=== PATIENT | female | born 1960 | race American Indian/Alaskan Native ===

== ENCOUNTER 2019-02-14 14:15 | Observation (INO) | payer BC, MEDICAID, MEDICARE, OTHER ==
[2019-02-14 14:16] VITALS: BMI 26.5
[2019-02-14] MEDS ORDERED: Ciprofloxacin 400mg/200ml D5W 400 MG/200 ML BAG IVPB STA (14:44)
[2019-02-14] MEDS ORDERED: Ciprofloxacin 400mg/200ml D5W 400 MG/200 ML BAG IVPB ONE (14:59)
[2019-02-14 15:20] LABS: SQUAMOUS EPITHIAL 2 /hpf (0-5); URINE BACTERIA RARE (<OCC); URINE BILIRUBIN NEGATIVE (NEGATIVE); URINE BLOOD SMALL (NEGATIVE); URINE CLARITY CLEAR (Clear); URINE COLOR STRAW (YELLOW); URINE GLUCOSE (UA) NEG (NEGATIVE); URINE LEUKOCYTE ESTERASE NEG Leu/uL (Negative); URINE PROTEIN 100 mg/dL (NEGATIVE); URINE UROBILINOGEN 0.2-1.0 mg/dL (0.2-1.0)
[2019-02-14 15:31] LABS: BASO % 0.5 % (0.0-2.0); EOS % 0.2 % (0.0-4.0); HEMOGLOBIN 13.9 g/dL (12.0-16.0); LYMPH # 0.8 K/uL (1.0-4.3); LYMPH % 19.5 % (20.0-40.0); MEAN CORPUSCULAR HEMOGLOBIN 30.1 pg (27.0-31.0); MEAN CORPUSCULAR HGB CONC 32.4 g/dL (33.0-37.0); MEAN PLATELET VOLUME 9.2 fl (7.2-11.7); MONO # 0.3 K/uL (0.0-0.8); MONO % 5.8 % (0.0-10.0); NEUT # 3.2 K/uL (1.8-7.0); NRBC % 0.2 % (0.0-0.0); RBC 4.62 Mil/uL (3.80-5.20); RED CELL DISTRIBUTION WIDTH 16.1 % (11.5-14.5); WHITE BLOOD COUNT 4.3 K/uL (4.8-10.8)
[2019-02-14 15:42] LABS: MEAN CELL VOLUME 92.7 fl (81.0-99.0)
--- NOTE | 2019-02-14 15:43 | ED PDOC ---
HPI: Abdomen Time Seen by Provider: 02/14/19 14:29 Chief Complaint (Nursing): GI Problem Chief Complaint (Provider): GI Problem History Per: Patient History/Exam Limitations: no limitations Onset/Duration Of Symptoms: Days Current Symptoms Are (Timing): Still Present Additional Complaint(s): 58 y/o female with a PMHx of HIV, Hepatitis C with liver cirrhosis and esophag eal varices presents to the ED for evaluation of hematemesis associated with worsening abdominal pain since last night. Patient denies any changes in medication. Viral load is undetectable. CD4 count is 179 as per most recent paperwork. PMD: Nii Ta Past Medical History Reviewed: Historical Data, Nursing Documentation, Vital Signs Vital Signs: Last Vital Signs Temp 98.1 F 02/14/19 14:23 Pulse 61 02/14/19 14:23 Resp 17 02/14/19 14:23 BP 146/96 H 02/14/19 14:23 Pulse Ox 100 02/14/19 14:23 Primary Care Provider: Nii Ta - Medical History PMH: Anemia (blood transfusion), Arthritis (lower back), Hepatitis (C), HIV, HTN Denies: Diabetes, Deep Vein Thrombosis, Chronic Kidney Disease - Surgical History Surgical History: Denies: Pacemaker - Family History Family History: States: Unknown Family Hx - Immunization History Hx Tetanus Toxoid Vaccination: No Hx Influenza Vaccination: No Hx Pneumococcal Vaccination: No - Home Medications Home Medications: Ambulatory Orders Medication Instructions Recorded Abacavir Sulfate/Lamivudine 1 each PO DAILY 05/04/17 [Abacavir-Lamivudine 600-300 mg] Gabapentin [Neurontin] 300 mg PO TID 05/04/17 Ledipasvir/Sofosbuvir [Harvoni 1 tab PO DAILY 05/04/17 90-400 mg Tablet] Omeprazole 40 mg PO DAILY 05/04/17 Ondansetron ODT [Zofran ODT] 4 mg PO Q8H PRN 05/04/17 Pentoxifylline [Pentoxil] 400 mg PO TID 05/04/17 Raltegravir Potassium [Isentress] 400 mg PO BID 05/04/17 Atovaquone 750 mg PO DAILY 02/14/19 Nadolol [Corgard] 1 tab PO DAILY 02/14/19 oxyCODONE [oxyCODONE Immediate 15 mg PO DAILY 02/14/19 Release Tab] - Allergies Allergies/Adverse Reactions: Allergies Allergy/AdvReac Type Severity Reaction Status Date / Time doxycycline Allergy RASH Verified 02/14/19 14:21 sulfamethoxazole Allergy RASH Verified 02/14/19 14:21 [From Bactrim] tramadol HCl [From Ultram] Allergy RASH Verified 02/14/19 14:21 trimethoprim [From Bactrim] Allergy RASH Verified 02/14/19 14:21 Review of Systems ROS Statement: Except As Marked, All Systems Reviewed And Found Negative Gastrointestinal: Positive for: Abdominal Pain, Hematemesis Physical Exam - Reviewed Nursing Documentation Reviewed: Yes Vital Signs Reviewed: Yes - Physical Exam Appears: Positive for: Uncomfortable (Patient moaning in pain, vital signs stable on monitor) Head Exam: Positive for: ATRAUMATIC Skin: Positive for: Normal Color, Warm, Dry Eye Exam: Positive for: Other (conjunctivae is pink) ENT: Positive for: Other (moist mucous membranes) Neck: Positive for: Normal Cardiovascular/Chest: Positive for: Regular Rate, Rhythm. Negative for: Murmur Respiratory: Positive for: Normal Breath Sounds. Negative for: Respiratory Distress Gastrointestinal/Abdominal: Positive for: Tenderness (diffuse abdominal tenderness but worse in the epigastric region) Extremity: Positive for: Normal ROM. Negative for: Deformity Neurological/Psych: Positive for: Awake, Oriented (x3). Negative for: Motor/Sensory Deficits - Laboratory Results Result Diagrams: 02/14/19 15:10 02/14/19 15:50 Lab Results: Urine Color Straw (YELLOW) 02/14/19 15:10 Urine Clarity Clear (Clear) 02/14/19 15:10 Urine pH 8.0 (5.0-8.0) 02/14/19 15:10 Ur Specific [place] 1.005 (1.003-1.030) 02/14/19 15:10 Urine Protein 100 mg/dL (NEGATIVE) 02/14/19 15:10 Urine Glucose (UA) Neg mg/dL (NEGATIVE) 02/14/19 15:10 Urine Ketones Trace mg/dL (NEGATIVE) 02/14/19 15:10 Urine Blood Small (NEGATIVE) 02/14/19 15:10 Urine Nitrate Negative (NEGATIVE) 02/14/19 15:10 Urine Bilirubin Negative (NEGATIVE) 02/14/19 15:10 Urine Urobilinogen 0.2-1.0 mg/dL (0.2-1.0) 02/14/19 15:10 Ur Leukocyte Esterase Neg Yeison/uL (Negative) 02/14/19 15:10 Urine RBC (Auto) 4 /hpf (0-3) H 02/14/19 15:10 Urine Microscopic WBC 1 /hpf (0-5) 02/14/19 15:10 Ur Squamous Epith Cells 2 /hpf (0-5) 02/14/19 15:10 Urine Bacteria Rare (<OCC) 02/14/19 15:10 - ECG O2 Sat by Pulse Oximetry: 100 (RA) Pulse Ox Interpretation: Normal Medical Decision Making Medical Decision Making: Time: 1439 A/P: Workup for Upper GI bleed and vomiting -- Labs -- Reglan, Zofran, Cipro, Octreotide ordered -- GI cocktail when labs are back -- Reassess patient -- Type and Screen -- EKG -- CMP -- Lact Acid, Plasma -- Lipase -- CBC with Differentials -- PTT -- Prothrombin Time -- CXR Portable -- Cipro 400 mg in 200 ml IVPB -- Morphine 2 mg IVP -- Protonix Inj 8-0 mg IVP -- Reglan 10 mg IVP -- SandoSTATIN 50 mcg IV -- Zofran Inj 4 mg IVP -- Urinalysis 1620 Pt admitted to hospitalist. GI consult placed. Pain improved. Pt given IV fluids. Scribe Attestation: Documented by Dino Tompkins, acting as a scribe Heather Garza MD. Provider Scribe Attestation: All medical record entries made by the Scribe were at my direction and personally dictated by me. I have reviewed the chart and agree that the record accurately reflects my personal performance of the history, physical exam, medical decision making, and the department course for this patient. I have also personally directed, reviewed, and agree with the discharge instructions and disposition. Disposition - Clinical Impression Clinical Impression: Gastrointestinal hemorrhage, Hepatitis C, AIDS (acquired immunodeficiency syndrome), CD4 <=200 - Disposition Disposition Time: 16:20 Condition: GUARDED
[2019-02-14] MEDS ORDERED: Sterile Water 20 ML IV ONE (15:56)
[2019-02-14 16:09] LABS: INR 1.7; PROTHROMBIN TIME 19.3 Seconds (9.8-13.1)
[2019-02-14 16:11] LABS: ALB/GLOB RATIO 0.8 (1.0-2.1); ALBUMIN 4.5 g/dL (3.5-5.0); ALT/SGPT 23 U/L (9-52); AST/SGOT 47 U/L (14-36); BLOOD UREA NITROGEN 12 mg/dl (7-17); CALCIUM 10.5 mg/dL (8.4-10.2); GFR NON-AFRICAN AMERICAN > 60; LIPASE 92 U/L (23-300); PARTIAL THROMBOPLASTIN TIME 29.8 Seconds (25.6-37.1)
[2019-02-14] MEDS ORDERED: Potassium Chloride 20 mEq 100 ML IVPB ONE (16:40)
[2019-02-14] MEDS ORDERED: Potassium Ch 20mEq in D5-1/2NS 1,000 ML IV SCH (16:45)
--- NOTE | 2019-02-14 16:47 | CP.PCM.HP ---
<Ninfa Baker - Last Filed: 02/14/19 17:54> History of Present Illness - History of Present Illness History of Present Illness: 58-year-old female with PMH of HIV, Hep C (treated w/Annabel) and liver cirrhosis, bleeding varices and DVT presents to [facility] ED after 8 episodes of hematemesis and worsening epigastric pain. No vomiting episodes in [facility] ED. Epigastric pain is 8/10 in severity, sharp/stabbign in ature, radiates to the back, is associated with nausea with no relieving factors. She notes that this bleeding began 2.5 weeks ago (01/28/19) and she went to another hospital but signed out since Dr Ta did not have privileges- hematemesis self-resolved at that time. She admits to lightheadedness and nausea but denies syncope, change in vision, palpitations, SOB and fever. PMD: Dr Ta Surgical Hx: hip surgery (), DVT (), IVC filter (), multiple right breast surg - benign (), partial hysterectomy (), left ankle x 15 surgeries (Dr Tellez) Meds: pt not sure of HTN medication OBHx: partial hysterectomy 1996 Fam Hx: denies Allergy: doxy, sulfa, tramadol, trimethoprim Present on Admission - Present on Admission Any Indicators Present on Admission: Yes History of DVT/PE: Yes History of Uncontrolled Diabetes: No Review of Systems - Review of Systems Review of Systems: all other systems reviewed and negative unless noted in HPI Past Patient History - Infectious Disease Hx of Infectious Diseases: None - Past Medical History & Family History Past Medical History?: Yes - Past Social History Smoking Status: Former Smoker - CARDIAC Hx Hypertension: Yes Hx Pacemaker: No - PULMONARY Hx Respiratory Disorders: No - NEUROLOGICAL Hx Neurological Disorder: Yes Other/Comment: severe pain fromneuropathy ble - HEENT Hx HEENT Problems: Yes Hx Blind: No Other/Comment: Use eyeglasses for reading - RENAL Hx Chronic Kidney Disease: No - ENDOCRINE/METABOLIC Hx Endocrine Disorders: No - HEMATOLOGICAL/ONCOLOGICAL Hx Anemia: Yes (blood transfusion) Hx Human Immunodeficiency Virus (HIV): Yes - INTEGUMENTARY Hx Dermatological Problems: Yes (chronic ulcers) Other/Comment: left inner ankle sx scar, multiple ble skin discolorations, crooked left great toe, vanda scar from fall - MUSCULOSKELETAL/RHEUMATOLOGICAL Hx Arthritis: Yes (lower back) - GASTROINTESTINAL Hx Gastrointestinal Disorders: No Other/Comment: + c dif 05/07/17 - GENITOURINARY/GYNECOLOGICAL Hx Genitourinary Disorders: No - PSYCHIATRIC Hx Emotional Abuse: No Hx Physical Abuse: No Hx Substance Use: No - SURGICAL HISTORY Hx Mastectomy: No - ANESTHESIA Hx Anesthesia Reactions: No Hx Malignant Hyperthermia: No Meds Allergies/Adverse Reactions: Allergies Allergy/AdvReac Type Severity Reaction Status Date / Time doxycycline Allergy RASH Verified 02/14/19 14:21 sulfamethoxazole Allergy RASH Verified 02/14/19 14:21 [From Bactrim] tramadol HCl [From Ultram] Allergy RASH Verified 02/14/19 14:21 trimethoprim [From Bactrim] Allergy RASH Verified 02/14/19 14:21 Physical Exam - Constitutional Appears: Non-toxic, No Acute Distress - Head Exam Head Exam: NORMAL INSPECTION - Eye Exam Eye Exam: Normal appearance - ENT Exam ENT Exam: Mucous Membranes Dry - Neck Exam Neck exam: Positive for: Normal Inspection - Respiratory Exam Respiratory Exam: NORMAL BREATHING PATTERN. absent: Respiratory Distress - GI/Abdominal Exam GI & Abdominal Exam: Soft, Tenderness (epigastric tenderness to palpation) - Neurological Exam Neurological exam: Alert, Oriented x3 - Psychiatric Exam Psychiatric exam: Normal Affect, Normal Mood - Skin Skin Exam: Dry, Normal Color, Warm Results - Vital Signs Recent Vital Signs: Last Vital Signs Temp 98.1 F 02/14/19 14:23 Pulse 61 02/14/19 14:23 Resp 17 02/14/19 14:23 BP 146/96 H 02/14/19 14:23 Pulse Ox 100 02/14/19 15:49 - Labs Result Diagrams: 02/14/19 15:10 02/14/19 15:50 Labs: Laboratory Results - last 24 hr 02/14/19 02/14/19 02/14/19 15:10 15:10 15:50 WBC 4.3 L RBC 4.62 Hgb 13.9 Hct 42.9 MCV 92.7 D MCH 30.1 MCHC 32.4 L RDW 16.1 H Plt Count 74 L D MPV 9.2 Neut % (Auto) 74.0 Lymph % (Auto) 19.5 L [place] % (Auto) 5.8 Eos % (Auto) 0.2 Baso % (Auto) 0.5 Neut # (Auto) 3.2 Lymph # (Auto) 0.8 L [place] # (Auto) 0.3 Eos # (Auto) 0.0 Baso # (Auto) 0.0 PT INR APTT Sodium 135 Potassium 3.1 L Chloride 100 Carbon Dioxide 24 Anion Gap 14 BUN 12 Creatinine 0.7 Est GFR ( Amer) > 60 Est GFR (Non-Af Amer) > 60 Random Glucose 116 H Lactic Acid Calcium 10.5 H Total Bilirubin 2.3 H AST 47 H D ALT 23 Alkaline Phosphatase 81 Total Protein 10.2 H Albumin 4.5 Globulin 5.7 H Albumin/Globulin Ratio 0.8 L Lipase 92 Urine Color Straw Urine Clarity Clear Urine pH 8.0 Ur Specific [place] 1.005 Urine Protein 100 Urine Glucose (UA) Neg Urine Ketones Trace Urine Blood Small Urine Nitrate Negative Urine Bilirubin Negative Urine Urobilinogen 0.2-1.0 Ur Leukocyte Esterase Neg Urine RBC (Auto) 4 H Urine Microscopic WBC 1 Ur Squamous Epith Cells 2 Urine Bacteria Rare Blood Type Antibody Screen BBK History Checked 02/14/19 02/14/19 02/14/19 15:50 15:50 15:50 WBC RBC Hgb Hct MCV MCH MCHC RDW Plt Count MPV Neut % (Auto) Lymph % (Auto) [place] % (Auto) Eos % (Auto) Baso % (Auto) Neut # (Auto) Lymph # (Auto) [place] # (Auto) Eos # (Auto) Baso # (Auto) PT 19.3 H INR 1.7 APTT 29.8 Sodium Potassium Chloride Carbon Dioxide Anion Gap BUN Creatinine Est GFR ( Amer) Est GFR (Non-Af Amer) Random Glucose Lactic Acid 1.7 Calcium Total Bilirubin AST ALT Alkaline Phosphatase Total Protein Albumin Globulin Albumin/Globulin Ratio Lipase Urine Color Urine Clarity Urine pH Ur Specific [place] Urine Protein Urine Glucose (UA) Urine Ketones Urine Blood Urine Nitrate Urine Bilirubin Urine Urobilinogen Ur Leukocyte Esterase Urine RBC (Auto) Urine Microscopic WBC Ur Squamous Epith Cells Urine Bacteria Blood Type A POSITIVE Antibody Screen Negative BBK History Checked Patient has bt Assessment & Plan - Assessment and Plan (Free Text) Assessment: 58-year-old female with PMH of HIV, Hep C and cirrhosis, bleeding varices and DVT presents to [facility] ED after 8 episodes of hematemesis. CXR: mild diffuse bilateral interstitial infiltrates; rule out fluid overload however chronic interstitial fibrosis not excluded Plan: Upper GI bleed -likely secondary to bleeding varices -H/H stable, monitor -NPO -IVF: D5 0.5 NS + 40 mEq K @100 mls/hr -Protonix drip -Octreotide drip 1250mcg/200 NS @ 5cc/hr -Zofran 4mg PRN -Pain control; morphine 0.5 Q6 mg moderate, morphine 1mg Q6 severe -GI consulted, Dr Sims, input and recs appreciated Hypokalemia -K 3.1 -repleated -f/u labs in am HTN -unsure of HTN meds -monitor vitals HIV -Labs 01/28/19 CD4 179 -Viral load undetectable as per pt -ID consulted, Dr Ta, input and recs appreciated Hep C -Viral load undetectable as per pt -Treated w/ Annabel Leukopenia -WBC 4.3 -Monitor Cirrhosis -2/2 HCV DVT Prophylaxis -SCD <Marj Jc - Last Filed: 02/15/19 19:51> Results - Vital Signs Recent Vital Signs: Last Vital Signs Temp 98.3 F 02/15/19 19:45 Pulse 50 L 02/15/19 19:45 Resp 17 02/15/19 19:45 BP 117/82 02/15/19 19:45 Pulse Ox 99 02/15/19 19:45 - Labs Result Diagrams: 02/15/19 04:55 02/15/19 04:55 Labs: Laboratory Results - last 24 hr 02/15/19 02/15/19 04:55 04:55 WBC 3.6 L RBC 3.69 L Hgb 11.5 L D Hct 33.1 L MCV 89.9 D MCH 31.1 H MCHC 34.7 RDW 16.0 H Plt Count 62 L Sodium 136 Potassium 3.9 Chloride 102 Carbon Dioxide 28 Anion Gap 10 BUN 14 Creatinine 1.2 Est GFR ( Amer) 56 Est GFR (Non-Af Amer) 46 Random Glucose 130 H Calcium 9.2 Total Bilirubin 1.3 AST 39 H ALT 20 Alkaline Phosphatase 55 Total Protein 8.8 H Albumin 3.8 Globulin 5.0 H Albumin/Globulin Ratio 0.8 L Attending/Attestation - Attestation I have personally seen and examined this patient.: Yes I have fully participated in the care of the patient.: Yes I have reviewed all pertinent clinical information: Yes Notes (Text): 02/15/19 19:51 Agree with findings and plan as above
--- NOTE | 2019-02-14 16:59 | RAD ---
Date of service: 02/14/2019 HISTORY: Possible admission COMPARISON: No prior. TECHNIQUE: 1 view obtained. FINDINGS: LUNGS: Diffuse bilateral interstitial infiltrates; rule out fluid overload however chronic interstitial fibrosis not excluded PLEURA: No significant pleural effusion identified, no pneumothorax apparent. CARDIOVASCULAR: No aortic atherosclerotic calcification present. Normal cardiac size. No pulmonary vascular congestion. OSSEOUS STRUCTURES: No significant abnormalities. VISUALIZED UPPER ABDOMEN: Normal. OTHER FINDINGS: None. IMPRESSION: Mild diffuse bilateral interstitial infiltrates; rule out fluid overload however chronic interstitial fibrosis not excluded.
[2019-02-14] MEDS: Pantoprazole 40 MG in Sodium Chloride 0.9% 100 ML IVPB SCH ×3 (18:10→22:09)
[2019-02-14] MEDS: Potassium Chl 40 mEq in D5-1/2 1,000 ML IV SCH ×3 (18:11→21:02)
--- NOTE | 2019-02-14 18:19 | CP.PCM.CON ---
History of Present Illness - History of Present Illness History of Present Illness: 58-year-old female presents to [facility] ED after 8 episodes of hematemesis and worsening epigastric pain. The bleeding began 2.5 weeks ago (01/28/19) and she went to another hospital but signed out A CT scan done at [facility] revealed cirrhotic liver, hepatic lesion 0.8cm , nonxocclusive portal vein thrombosis , as well as non occlusive thrombus in splenic and mesenteric veins , mild common duct dilatation as well as gallbladder thickening without dilatation, , marked splenomegaly with normal pancreas with trace ascites , extensive varices , portal hypertensive gastropathy Surgical Hx: bilateral hip surgery (2006), DVT (), IVC filter (), multiple right breast surg - benign (), partial hysterectomy (), left ankle x 15 surgeries (Dr Tellez) Bleeding varices banding at [facility] in 2017 Meds: epzicom, isentress, propanalol, ondansetron CD4 approx 150 ( patient neutropenic) OBHx: partial hysterectomy 1996 Fam Hx: denies Allergy: doxy, sulfa, tramadol, trimethoprim Review of Systems - Constitutional Constitutional: As Per HPI - EENT Eyes: absent: As Per HPI, Blind Spots, Blurred Vision, Change in Vision, Decreased Night Vision, Diplopia, Discharge, Dry Eye, Exophthalmos, Floaters, Irritation, Itchy Eyes, Loss of Peripheral Vision, Pain, Photophobia, Requires Corrective Lenses, Sees Flashes, Spots in Vision, Tunnel Vision, Other Visual Disturbances, Loss of Vision, Other Ears: absent: As Per HPI, Decreased Hearing, Ear Discharge, Ear Pain, Tinnitus, Abnormal Hearing, Disequilibrium, Dizziness, Other Nose/Mouth/Throat: absent: As Per HPI, Epistaxis, Nasal Congestion, Nasal Discharge, Nasal Obstruction, Nasal Trauma, Nose Pain, Post Nasal Drip, Sinus Pain, Sinus Pressure, Bleeding Gums, Change in Voice, Dental Pain, Dry Mouth, Dysphagia, Halitosis, Hoarsness, Lip Swelling, Mouth Lesions, Mouth Pain, Odynophagia, Sore Throat, Throat Swelling, Tongue Swelling, Facial Pain, Neck Pain, Neck Mass, Other - Breasts Breasts: absent: As Per HPI, Change in Shape, Mass, Pain, Nipple Discharge, Nipple Inversion, Skin Changes, Swelling, Other - Cardiovascular Cardiovascular: absent: As Per HPI, Acrocyanosis, Chest Pain, Chest Pain at Rest, Chest Pain with Activity, Claudication, Diaphoresis, Dyspnea, Dyspnea on Exertion, Edema, Irregular Heart Rhythm, Pain Radiating to Arm/Neck/Jaw, Leg Edema, Leg Ulcers, Lightheadedness, Orthopnea, Palpitations, Paroxysmal Nocturnal Dyspnea, Pedal Edema, Radiating Pain, Rapid Heart Rate, Slow Heart Rate, Syncope, Other - Respiratory Respiratory: absent: As Per HPI, Cough, Dyspnea, Hemoptysis, Dyspnea on Exertion, Wheezing, Snoring, Stridor, Pain on Inspiration, Chest Congestion, Excessive Mucous Production, Change in Mucous Color, Pain with Coughing, Other - Gastrointestinal Gastrointestinal: As Per HPI - Genitourinary Genitourinary: absent: As Per HPI, Change in Urinary Stream, Difficulty Urinating, Dysuria, Flank Pain, Hematuria, Pyuria, Nocturia, Urinary Incontinence, Urinary Frequency, Urinary Hesitance, Urinary Urgency, Voiding Freq/Small Amts, Freq UTI, Hx Renal/Bladder Calculi, Hx /Renal Surgery, Bladder Distension, Other - Reproductive: Female Reproductive:Female: absent: As Per HPI, Amenorrhea, Amenorrhea/ Control, Currently Menstual, Cycle <21 Days, Cycle >35 Days, Cycle Variable, Menses 1-7 Days, Menses >/= 8 Days, Menses Variable, Cycle > 4 Weeks Between, No Menses for 6 Months, Heavy Menses, Light Menses, Normal Menses, Spotting Between Cycles, S/P Hysterectomy, Menopausal, Post Menopausal, Premenarche, Abnormal Vaginal Bleeding, Dysmenorrhea, Dyspareunia, Genital Lesions, Genital Pruritis, Pelvic Pain, Prolapse Symptoms, Sexual Dysfunction, Vaginal Discharge, Vaginal Dryness, Vaginal Odor, Vaginal Pruritis, Other - Menstruation Menstruation: absent: As Per HPI, Amenorrhea, Amenorrhea/ Control, Currently Menstual, Cycle <21 Days, Cycle >35 Days, Cycle Variable, Menses 1-7 Days, Menses >/= 8 Days, Menses Variable, Cycle > 4 Weeks Between, No Menses for 6 Months, Heavy Menses, Light Menses, Normal Menses, Spotting Between Cycles, S/P Hysterectomy, Menopausal, Post Menopausal, Premenarche, Abnormal Vaginal Bleeding, Dysmenorrhea, Other - Musculoskeletal Musculoskeletal: absent: As Per HPI, Abnormal Gait, Arthralgias, Atrophy, Back Pain, Deformity, Joint Swelling, Limited Range of Motion, Loss of Height, Muscle Cramps, Muscle Weakness, Myalgias, Neck Pain, Numbness, Radiating Pain into Limb, Stiffness, Tingling, Other - Integumentary Integumentary: absent: As Per HPI, Acne, Alopecia, Bleeding Lesions, Change in Hair, Change in Nails, Change in Pigmentation, Changing Lesions, Dry Skin, Erythema, Furuncle, Hirsutism, Lesions, New Lesions, Non-Healing Lesions, Photosensitivity, Pruritus, Rash, Skin Pain, Skin Ulcer, Sores, Striae, Swelling, Unusual Bruising, Wounds, Jaundice, Other - Neurological Neurological: absent: As Per HPI, Abnormal Gait, Abnormal Hearing, Abnormal Movements, Abnormal Speech, Behavioral Changes, Burning Sensations, Confusion, Convulsions, Disequilibrium, Dizziness, Numbness, Focal Weakness, Frequent Falls, Headaches, Lack of Coordination, Loss of Vision, Memory Loss, Paresthesias, Radicular Pain, Restless Legs, Sensory Deficit, Syncope, Tingling, Tremor, Vertigo, Weakness, Other Visual Disturbances, Other - Psychiatric Psychiatric: absent: As Per HPI, Abnormal Sleep Pattern, Anhedonia, Anxiety, Auditory Hallucinations, Behavioral Changes, Change in Appetite, Change in Libido, Confusion, Depression, Difficulty Concentrating, Hallucinations, Homicidal Ideation, Hopelessness, Irritability, Memory Loss, Mood Swings, Panic Attacks, Paranoia, Suicidal Ideation, Visual Hallucinations, Tactile Hallucinations, Other - Endocrine Endocrine: absent: As Per HPI, Change in Body Appearance, Change in Libido, Cold Intolorance, Deepening of Voice, Excessive Sweating, Fatigue, Flushing, Heat Intolorance, Increase in Ring/Shoe/Hat Size, Palpitations, Polydipsia, Polyphagia, Polyuria, Other - Hematologic/Lymphatic Hematologic: absent: As Per HPI, Easy Bleeding, Easy Bruising, Lymphadenopathy, Other Past Patient History - Infectious Disease Hx of Infectious Diseases: None - Past Medical History & Family History Past Medical History?: Yes - Past Social History Smoking Status: Former Smoker - CARDIAC Hx Hypertension: Yes Hx Pacemaker: No - PULMONARY Hx Respiratory Disorders: No - NEUROLOGICAL Hx Neurological Disorder: Yes Other/Comment: severe pain fromneuropathy ble - HEENT Hx HEENT Problems: Yes Hx Blind: No Other/Comment: Use eyeglasses for reading - RENAL Hx Chronic Kidney Disease: No - ENDOCRINE/METABOLIC Hx Endocrine Disorders: No - HEMATOLOGICAL/ONCOLOGICAL Hx Anemia: Yes (blood transfusion) Hx Human Immunodeficiency Virus (HIV): Yes - INTEGUMENTARY Hx Dermatological Problems: Yes (chronic ulcers) Other/Comment: left inner ankle sx scar, multiple ble skin discolorations, crooked left great toe, vanda scar from fall - MUSCULOSKELETAL/RHEUMATOLOGICAL Hx Arthritis: Yes (lower back) - GASTROINTESTINAL Hx Gastrointestinal Disorders: No Other/Comment: + c dif 05/07/17 - GENITOURINARY/GYNECOLOGICAL Hx Genitourinary Disorders: No - PSYCHIATRIC Hx Emotional Abuse: No Hx Physical Abuse: No Hx Substance Use: No - SURGICAL HISTORY Hx Mastectomy: No - ANESTHESIA Hx Anesthesia Reactions: No Hx Malignant Hyperthermia: No Meds Allergies/Adverse Reactions: Allergies Allergy/AdvReac Type Severity Reaction Status Date / Time doxycycline Allergy RASH Verified 02/14/19 14:21 sulfamethoxazole Allergy RASH Verified 02/14/19 14:21 [From Bactrim] tramadol HCl [From Ultram] Allergy RASH Verified 02/14/19 14:21 trimethoprim [From Bactrim] Allergy RASH Verified 02/14/19 14:21 - Medications Medications: Current Medications Pantoprazole Sodium 40 mg/ (Sodium Chloride) 100 mls @ 20 mls/hr IVPB Q5H [facility] Last Admin: 02/14/19 18:10 Dose: 20 mls/hr Potassium Chloride (Potassium Chloride 20 Meq/100 Ml) 100 mls @ 50 mls/hr IVPB ONCE ONE Stop: 02/14/19 18:39 Last Admin: 02/14/19 18:11 Dose: 50 mls/hr Octreotide Acetate 1,250 mcg/ (Sodium Chloride) 262.5 mls @ 5 mls/hr IV .Q24H [facility] Stop: 02/15/19 17:05 Last Admin: 02/14/19 18:11 Dose: 5 mls/hr Potassium Chloride/Dextrose/Sod Cl (Potassium Chl 40 Meq In D5-1/2ns) 1,000 mls @ 100 mls/hr IV .Q10H [facility] Stop: 02/15/19 16:40 Last Admin: 02/14/19 18:11 Dose: 100 mls/hr Morphine Sulfate (Morphine) 0.5 mg IVP Q6 PRN PRN Reason: Pain, moderate (4-7) Morphine Sulfate (Morphine) 1 mg IVP Q6 PRN PRN Reason: Pain, severe (8-10) Ondansetron HCl (Zofran Inj) 4 mg IVP Q6 PRN PRN Reason: Nausea/Vomiting Physical Exam - Constitutional Appears: Non-toxic, Chronically Ill - Head Exam Head Exam: ATRAUMATIC, NORMAL INSPECTION, NORMOCEPHALIC - Eye Exam Eye Exam: EOMI, Normal appearance, PERRL Pupil Exam: NORMAL ACCOMODATION, PERRL - ENT Exam ENT Exam: Mucous Membranes Moist, Normal Exam - Neck Exam Neck exam: Positive for: Normal Inspection - Respiratory Exam Respiratory Exam: Clear to Auscultation Bilateral, NORMAL BREATHING PATTERN - Cardiovascular Exam Cardiovascular Exam: REGULAR RHYTHM - GI/Abdominal Exam GI & Abdominal Exam: Diminished Bowel Sounds, Distended, Guarding, Soft, Tenderness. absent: Rebound, Rigid - Rectal Exam Rectal Exam: Deferred - Exam Exam: NORMAL INSPECTION - Extremities Exam Extremities exam: Positive for: joint swelling, pedal pulses present. Negative for: full ROM, normal inspection Additional comments: decreased rom left ankle - Back Exam Back exam: NORMAL INSPECTION - Neurological Exam Neurological exam: Alert, CN II-XII Intact, Normal Gait, Oriented x3, Reflexes Normal - Psychiatric Exam Psychiatric exam: Normal Affect, Normal Mood - Skin Skin Exam: Dry, Intact, Normal Color, Warm Results - Vital Signs Recent Vital Signs: Last Vital Signs Temp 98.1 F 02/14/19 14:23 Pulse 61 02/14/19 14:23 Resp 17 02/14/19 14:23 BP 146/96 H 02/14/19 14:23 Pulse Ox 100 02/14/19 15:49 - Labs Result Diagrams: 02/15/19 04:55 02/15/19 04:55 Labs: Laboratory Results - last 24 hr 02/14/19 02/14/19 02/14/19 15:10 15:10 15:50 WBC 4.3 L RBC 4.62 Hgb 13.9 Hct 42.9 MCV 92.7 D MCH 30.1 MCHC 32.4 L RDW 16.1 H Plt Count 74 L D MPV 9.2 Neut % (Auto) 74.0 Lymph % (Auto) 19.5 L [place] % (Auto) 5.8 Eos % (Auto) 0.2 Baso % (Auto) 0.5 Neut # (Auto) 3.2 Lymph # (Auto) 0.8 L [place] # (Auto) 0.3 Eos # (Auto) 0.0 Baso # (Auto) 0.0 PT INR APTT Sodium 135 Potassium 3.1 L Chloride 100 Carbon Dioxide 24 Anion Gap 14 BUN 12 Creatinine 0.7 Est GFR ( Amer) > 60 Est GFR (Non-Af Amer) > 60 Random Glucose 116 H Lactic Acid Calcium 10.5 H Total Bilirubin 2.3 H AST 47 H D ALT 23 Alkaline Phosphatase 81 Total Protein 10.2 H Albumin 4.5 Globulin 5.7 H Albumin/Globulin Ratio 0.8 L Lipase 92 Urine Color Straw Urine Clarity Clear Urine pH 8.0 Ur Specific [place] 1.005 Urine Protein 100 Urine Glucose (UA) Neg Urine Ketones Trace Urine Blood Small Urine Nitrate Negative Urine Bilirubin Negative Urine Urobilinogen 0.2-1.0 Ur Leukocyte Esterase Neg Urine RBC (Auto) 4 H Urine Microscopic WBC 1 Ur Squamous Epith Cells 2 Urine Bacteria Rare Blood Type Antibody Screen BBK History Checked 02/14/19 02/14/19 02/14/19 15:50 15:50 15:50 WBC RBC Hgb Hct MCV MCH MCHC RDW Plt Count MPV Neut % (Auto) Lymph % (Auto) [place] % (Auto) Eos % (Auto) Baso % (Auto) Neut # (Auto) Lymph # (Auto) [place] # (Auto) Eos # (Auto) Baso # (Auto) PT 19.3 H INR 1.7 APTT 29.8 Sodium Potassium Chloride Carbon Dioxide Anion Gap BUN Creatinine Est GFR ( Amer) Est GFR (Non-Af Amer) Random Glucose Lactic Acid 1.7 Calcium Total Bilirubin AST ALT Alkaline Phosphatase Total Protein Albumin Globulin Albumin/Globulin Ratio Lipase Urine Color Urine Clarity Urine pH Ur Specific [place] Urine Protein Urine Glucose (UA) Urine Ketones Urine Blood Urine Nitrate Urine Bilirubin Urine Urobilinogen Ur Leukocyte Esterase Urine RBC (Auto) Urine Microscopic WBC Ur Squamous Epith Cells Urine Bacteria Blood Type A POSITIVE Antibody Screen Negative BBK History Checked Patient has bt Assessment & Plan (1) AIDS (acquired immunodeficiency syndrome), CD4 <=200 Status: Acute (2) Gastrointestinal hemorrhage Status: Acute (3) Hepatitis C Status: Chronic (4) Abdominal pain Status: Acute (5) GIB (gastrointestinal bleeding) Status: Acute - Assessment and Plan (Free Text) Assessment: antiviral rx reordered placed on prophylactic antibiotics GI and surgery on board r/o malignancy Dr Colón for heme eval
[2019-02-14] MEDS ORDERED: Sodium Chloride 0.9% 1,000 ML IV STA (19:25)
--- NOTE | 2019-02-14 21:52 | CARD ---
APPROVED REPORT Date of service: 02/14/2019 EKG Measurement Heart [id number] <Conclusion> Sinus bradycardia with sinus arrhythmia Otherwise normal ECG
[2019-02-15 06:10] LABS: HEMOGLOBIN 11.5 g/dL (12.0-16.0); MEAN CELL VOLUME 89.9 fl (81.0-99.0); MEAN CORPUSCULAR HEMOGLOBIN 31.1 pg (27.0-31.0); MEAN CORPUSCULAR HGB CONC 34.7 g/dL (33.0-37.0); RBC 3.69 Mil/uL (3.80-5.20); WHITE BLOOD COUNT 3.6 K/uL (4.8-10.8)
[2019-02-15] MEDS: Pantoprazole 40 MG in Sodium Chloride 0.9% 100 ML IVPB SCH (06:23)
[2019-02-15] MEDS: Potassium Chl 40 mEq in D5-1/2 1,000 ML IV SCH (06:23)
[2019-02-15 06:37] LABS: ALB/GLOB RATIO 0.8 (1.0-2.1); ALBUMIN 3.8 g/dL (3.5-5.0); CALCIUM 9.2 mg/dL (8.4-10.2)
[2019-02-15] MEDS ORDERED: Sodium Chloride 0.9% 500 ML IV ONE (09:18)
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
--- NOTE | 2019-02-15 15:23 | CP.PCM.CON ---
<Dulce Steinberg - Last Filed: 02/15/19 15:17> History of Present Illness - History of Present Illness History of Present Illness: Hepatobiliary surgery consult note for Dr. Kenney, PGY-2 Pt seen/examined at bedside 58F w/PMH sig for HCV s/p treatment with cirrhosis and possible liver lesion consulted for liver lesion. Pt was to be seen by Dr. Wallis in the office however had to be hospitalized for hematemesis. Pt with long history of hematemesis due to bleeding esophageal varices s/p banding in 2018 with coughing induced hematemesis recently. Admits to abdominal pain, cough, nausea. Denies F & C, SOB, CP, weakness, dizziness, sore throat, other complaints. PMH: DVT (provoked by surgery), bleeding varices ks/p banding (2017) PSH: B/L hip sx (2006), IVF filter (1986), multiple R breast sx (1994), partial hysterectomy (1996), L ankle sx x 15 All: Doxycycline, sulfa, tramadol, trimethoprim SH: Denies ETOH, tobacco. Admits to MJ use (occasional) FH: Non contributory PMD: Dr. Ta Review of Systems - Review of Systems All systems: reviewed and no additional remarkable complaints except - Constitutional Constitutional: absent: Chills, Fever - EENT Eyes: absent: Change in Vision - Cardiovascular Cardiovascular: absent: Chest Pain - Respiratory Respiratory: Cough - Gastrointestinal Gastrointestinal: Abdominal Pain, Hematemesis, Nausea, Vomiting. absent: Change in Bowel Habits, Constipation, Diarrhea, Melena - Musculoskeletal Musculoskeletal: absent: Back Pain - Neurological Neurological: absent: Focal Weakness - Psychiatric Psychiatric: absent: Change in Appetite Past Patient History - Infectious Disease Hx of Infectious Diseases: None - Past Medical History & Family History Past Medical History?: Yes - Past Social History Smoking Status: Never Smoked - CARDIAC Hx Cardiac Disorders: Yes Hx Hypertension: Yes Hx Pacemaker: No - PULMONARY Hx Respiratory Disorders: No - NEUROLOGICAL Hx Neurological Disorder: Yes Other/Comment: severe pain fromneuropathy ble - HEENT Hx HEENT Problems: Yes Hx Blind: No Other/Comment: Use eyeglasses for reading - RENAL Hx Chronic Kidney Disease: No - ENDOCRINE/METABOLIC Hx Endocrine Disorders: No - HEMATOLOGICAL/ONCOLOGICAL Hx Blood Disorders: Yes Hx AIDS: No Hx Anemia: Yes Hx Cirrhosis: Yes Hx Hepatitis C: Yes Hx Human Immunodeficiency Virus (HIV): Yes - INTEGUMENTARY Hx Dermatological Problems: Yes (chronic ulcers) Other/Comment: left inner ankle sx scar, multiple ble skin discolorations, crooked left great toe, vanda scar from fall - MUSCULOSKELETAL/RHEUMATOLOGICAL Hx Musculoskeletal Disorders: Yes Hx Arthritis: Yes Hx Falls: No - GASTROINTESTINAL Hx Gastrointestinal Disorders: No Other/Comment: + c dif 05/07/17 - GENITOURINARY/GYNECOLOGICAL Hx Genitourinary Disorders: Yes Hx Sexually Transmitted Disorders: Yes - PSYCHIATRIC Hx Psychophysiologic Disorder: No Hx Substance Use: No - SURGICAL HISTORY Hx Surgeries: Yes Hx Hysterectomy: Yes Hx Mastectomy: No - ANESTHESIA Hx Anesthesia: Yes Hx Anesthesia Reactions: No Hx Malignant Hyperthermia: No Meds Allergies/Adverse Reactions: Allergies Allergy/AdvReac Type Severity Reaction Status Date / Time doxycycline Allergy RASH Verified 02/14/19 14:21 sulfamethoxazole Allergy RASH Verified 02/14/19 14:21 [From Bactrim] tramadol HCl [From Ultram] Allergy RASH Verified 02/14/19 14:21 trimethoprim [From Bactrim] Allergy RASH Verified 02/14/19 14:21 - Medications Medications: Current Medications Abacavir Sulfate (Ziagen) 600 mg PO DAILY TITUS; Protocol Last Admin: 02/15/19 09:33 Dose: 600 mg Pantoprazole Sodium 40 mg/ (Sodium Chloride) 100 mls @ 20 mls/hr IVPB Q5H TITUS Last Admin: 02/15/19 06:23 Dose: Not Given Octreotide Acetate 1,250 mcg/ (Sodium Chloride) 262.5 mls @ 5 mls/hr IV .Q24H TITUS Stop: 02/15/19 17:05 Last Admin: 02/14/19 18:11 Dose: 5 mls/hr Potassium Chloride/Dextrose/Sod Cl (Potassium Chl 20 Meq In D5-1/2ns) 1,000 mls @ 100 mls/hr IV .Q10H TITUS Stop: 02/16/19 07:50 Ceftriaxone Sodium 1 gm/ (Sodium Chloride) 100 mls @ 100 mls/hr IVPB DAILY TITUS; Protocol Last Admin: 02/15/19 11:07 Dose: 100 mls/hr Lamivudine (Epivir) 300 mg PO DAILY TITUS; Protocol Last Admin: 02/15/19 09:33 Dose: 300 mg Morphine Sulfate (Morphine) 0.5 mg IVP Q6 PRN PRN Reason: Pain, moderate (4-7) Morphine Sulfate (Morphine) 1 mg IVP Q6 PRN PRN Reason: Pain, severe (8-10) Last Admin: 02/15/19 12:27 Dose: 1 mg Ondansetron HCl (Zofran Inj) 4 mg IVP Q6 PRN PRN Reason: Nausea/Vomiting Last Admin: 02/15/19 06:23 Dose: 4 mg Raltegravir (Isentress) 400 mg PO BID TITUS; Protocol Last Admin: 02/15/19 09:33 Dose: 400 mg Physical Exam - Constitutional Appears: Non-toxic, No Acute Distress - Head Exam Head Exam: ATRAUMATIC, NORMAL INSPECTION, NORMOCEPHALIC - Eye Exam Eye Exam: EOMI, Normal appearance - ENT Exam ENT Exam: Mucous Membranes Moist, Normal Exam - Neck Exam Neck exam: Positive for: Normal Inspection - Respiratory Exam Respiratory Exam: Clear to Auscultation Bilateral, NORMAL BREATHING PATTERN - Cardiovascular Exam Cardiovascular Exam: REGULAR RHYTHM, +S1, +S2 - GI/Abdominal Exam GI & Abdominal Exam: Soft, Tenderness (diffuse, more in epigastrium). absent: Diminished Bowel Sounds, Distended, Firm, Guarding, Hernia, Rebound, Rigid - Extremities Exam Extremities exam: Positive for: normal inspection - Back Exam Back exam: NORMAL INSPECTION - Neurological Exam Neurological exam: Alert, CN II-XII Intact, Oriented x3 - Psychiatric Exam Psychiatric exam: Normal Affect, Normal Mood - Skin Skin Exam: Dry, Intact, Normal Color, Warm Results - Vital Signs Recent Vital Signs: Last Vital Signs Temp 98.1 F 02/15/19 12:15 Pulse 50 L 02/15/19 12:15 Resp 20 02/15/19 12:15 BP 103/68 02/15/19 12:15 Pulse Ox 99 02/15/19 12:15 - Labs Result Diagrams: 02/15/19 04:55 02/15/19 04:55 Labs: Laboratory Results - last 24 hr 02/14/19 02/14/19 02/14/19 15:10 15:10 15:50 WBC 4.3 L RBC 4.62 Hgb 13.9 Hct 42.9 MCV 92.7 D MCH 30.1 MCHC 32.4 L RDW 16.1 H Plt Count 74 L D MPV 9.2 Neut % (Auto) 74.0 Lymph % (Auto) 19.5 L Johnson % (Auto) 5.8 Eos % (Auto) 0.2 Baso % (Auto) 0.5 Neut # (Auto) 3.2 Lymph # (Auto) 0.8 L Johnson # (Auto) 0.3 Eos # (Auto) 0.0 Baso # (Auto) 0.0 PT INR APTT Sodium 135 Potassium 3.1 L Chloride 100 Carbon Dioxide 24 Anion Gap 14 BUN 12 Creatinine 0.7 Est GFR ( Amer) > 60 Est GFR (Non-Af Amer) > 60 Random Glucose 116 H Lactic Acid Calcium 10.5 H Total Bilirubin 2.3 H AST 47 H D ALT 23 Alkaline Phosphatase 81 Total Protein 10.2 H Albumin 4.5 Globulin 5.7 H Albumin/Globulin Ratio 0.8 L Lipase 92 Urine Color Straw Urine Clarity Clear Urine pH 8.0 Ur Specific [place] 1.005 Urine Protein 100 Urine Glucose (UA) Neg Urine Ketones Trace Urine Blood Small Urine Nitrate Negative Urine Bilirubin Negative Urine Urobilinogen 0.2-1.0 Ur Leukocyte Esterase Neg Urine RBC (Auto) 4 H Urine Microscopic WBC 1 Ur Squamous Epith Cells 2 Urine Bacteria Rare Blood Type Antibody Screen BBK History Checked 02/14/19 02/14/19 02/14/19 15:50 15:50 15:50 WBC RBC Hgb Hct MCV MCH MCHC RDW Plt Count MPV Neut % (Auto) Lymph % (Auto) Johnson % (Auto) Eos % (Auto) Baso % (Auto) Neut # (Auto) Lymph # (Auto) Johnson # (Auto) Eos # (Auto) Baso # (Auto) PT 19.3 H INR 1.7 APTT 29.8 Sodium Potassium Chloride Carbon Dioxide Anion Gap BUN Creatinine Est GFR ( Amer) Est GFR (Non-Af Amer) Random Glucose Lactic Acid 1.7 Calcium Total Bilirubin AST ALT Alkaline Phosphatase Total Protein Albumin Globulin Albumin/Globulin Ratio Lipase Urine Color Urine Clarity Urine pH Ur Specific [place] Urine Protein Urine Glucose (UA) Urine Ketones Urine Blood Urine Nitrate Urine Bilirubin Urine Urobilinogen Ur Leukocyte Esterase Urine RBC (Auto) Urine Microscopic WBC Ur Squamous Epith Cells Urine Bacteria Blood Type A POSITIVE Antibody Screen Negative BBK History Checked Patient has bt 02/15/19 02/15/19 04:55 04:55 WBC 3.6 L RBC 3.69 L Hgb 11.5 L D Hct 33.1 L MCV 89.9 D MCH 31.1 H MCHC 34.7 RDW 16.0 H Plt Count 62 L MPV Neut % (Auto) Lymph % (Auto) Johnson % (Auto) Eos % (Auto) Baso % (Auto) Neut # (Auto) Lymph # (Auto) Johnson # (Auto) Eos # (Auto) Baso # (Auto) PT INR APTT Sodium 136 Potassium 3.9 Chloride 102 Carbon Dioxide 28 Anion Gap 10 BUN 14 Creatinine 1.2 Est GFR ( Amer) 56 Est GFR (Non-Af Amer) 46 Random Glucose 130 H Lactic Acid Calcium 9.2 Total Bilirubin 1.3 AST 39 H ALT 20 Alkaline Phosphatase 55 Total Protein 8.8 H Albumin 3.8 Globulin 5.0 H Albumin/Globulin Ratio 0.8 L Lipase Urine Color Urine Clarity Urine pH Ur Specific [place] Urine Protein Urine Glucose (UA) Urine Ketones Urine Blood Urine Nitrate Urine Bilirubin Urine Urobilinogen Ur Leukocyte Esterase Urine RBC (Auto) Urine Microscopic WBC Ur Squamous Epith Cells Urine Bacteria Blood Type Antibody Screen BBK History Checked Assessment & Plan - Assessment and Plan (Free Text) Assessment: 58F w/PMH sig for HCV s/p treatment & cirrhosis with liver lesion and hematemesis Plan: FU Triple phase CT of liver GI for bleeding varices DW Dr. Tripathi, PGY-2 - Date & Time Date: 02/15/19 Time: 15:24 <Brock Wallis - Last Filed: 02/16/19 11:48> Meds - Medications Medications: Current Medications Abacavir Sulfate (Ziagen) 600 mg PO DAILY TITUS; Protocol Last Admin: 02/15/19 09:33 Dose: 600 mg Atovaquone (Mepron) 1,500 mg PO DAILY TITUS; Protocol Pantoprazole Sodium 40 mg/ (Sodium Chloride) 100 mls @ 20 mls/hr IVPB Q5H TITUS Last Admin: 02/15/19 06:23 Dose: Not Given Ceftriaxone Sodium 1 gm/ (Sodium Chloride) 100 mls @ 100 mls/hr IVPB DAILY TITUS; Protocol Last Admin: 02/15/19 11:07 Dose: 100 mls/hr Lamivudine (Epivir) 300 mg PO DAILY TITUS; Protocol Last Admin: 02/15/19 09:33 Dose: 300 mg Morphine Sulfate (Morphine) 0.5 mg IVP Q6 PRN PRN Reason: Pain, moderate (4-7) Morphine Sulfate (Morphine) 1 mg IVP Q6 PRN PRN Reason: Pain, severe (8-10) Last Admin: 02/16/19 06:29 Dose: 1 mg Ondansetron HCl (Zofran Inj) 4 mg IVP Q6 PRN PRN Reason: Nausea/Vomiting Last Admin: 02/15/19 18:38 Dose: 4 mg Raltegravir (Isentress) 400 mg PO BID [facility]; Protocol Last Admin: 02/15/19 17:27 Dose: Not Given Results - Vital Signs Recent Vital Signs: Last Vital Signs Temp 96.8 F L 02/16/19 10:00 Pulse 59 L 02/16/19 10:00 Resp 14 02/16/19 10:00 BP 108/57 L 02/16/19 10:00 Pulse Ox 100 02/16/19 10:00 - Labs Result Diagrams: 02/16/19 05:05 02/16/19 05:05 Labs: Laboratory Results - last 24 hr 02/16/19 02/16/19 02/16/19 05:05 05:05 05:05 WBC 1.8 L* RBC 3.23 L Hgb 9.8 L Hct 29.2 L MCV 90.4 MCH 30.3 MCHC 33.5 RDW 16.0 H Plt Count 44 L Retic Count Sodium 135 Potassium 3.8 Chloride 106 Carbon Dioxide 24 Anion Gap 9 L BUN 16 Creatinine 1.0 Est GFR ( Amer) > 60 Est GFR (Non-Af Amer) 57 Random Glucose 98 Calcium 8.7 Ferritin 19.2 Total Bilirubin 0.8 AST 34 ALT 22 Alkaline Phosphatase 43 Total Protein 7.7 Albumin 3.3 L Globulin 4.4 H Albumin/Globulin Ratio 0.7 L Alpha Fetoprotein 2.3 Vitamin B12 752 02/16/19 05:05 WBC RBC Hgb Hct MCV MCH MCHC RDW Plt Count Retic Count 1.3 Sodium Potassium Chloride Carbon Dioxide Anion Gap BUN Creatinine Est GFR ( Amer) Est GFR (Non-Af Amer) Random Glucose Calcium Ferritin Total Bilirubin AST ALT Alkaline Phosphatase Total Protein Albumin Globulin Albumin/Globulin Ratio Alpha Fetoprotein Vitamin B12 Assessment & Plan - Assessment and Plan (Free Text) Plan: All medical record entries made by the resident were at my direction. I have reviewed the chart and agree that the record accurately reflects my personal p erformance of the history, physical exam, medical decision making
--- NOTE | 2019-02-15 22:05 | CP.PCM.PN ---
Subjective - Date & Time of Evaluation Date of Evaluation: 02/15/19 Time of Evaluation: 08:00 - Subjective Subjective: consults noted / appreciated possible liver mass will ask Dr Colón to see for this and heme related problems Objective - Vital Signs/Intake and Output Vital Signs (last 24 hours): Temp Pulse Resp BP Pulse Ox 98.3 F 50 L 17 117/82 99 02/15/19 19:45 02/15/19 19:45 02/15/19 19:45 02/15/19 19:45 02/15/19 19:45 - Medications Medications: Current Medications Abacavir Sulfate (Ziagen) 600 mg PO DAILY TITUS; Protocol Last Admin: 02/15/19 09:33 Dose: 600 mg Atovaquone (Mepron) 1,500 mg PO DAILY TITUS; Protocol Pantoprazole Sodium 40 mg/ (Sodium Chloride) 100 mls @ 20 mls/hr IVPB Q5H TITUS Last Admin: 02/15/19 06:23 Dose: Not Given Potassium Chloride/Dextrose/Sod Cl (Potassium Chl 20 Meq In D5-1/2ns) 1,000 mls @ 100 mls/hr IV .Q10H TITUS Stop: 02/16/19 07:50 Ceftriaxone Sodium 1 gm/ (Sodium Chloride) 100 mls @ 100 mls/hr IVPB DAILY TITUS; Protocol Last Admin: 02/15/19 11:07 Dose: 100 mls/hr Lamivudine (Epivir) 300 mg PO DAILY TITUS; Protocol Last Admin: 02/15/19 09:33 Dose: 300 mg Morphine Sulfate (Morphine) 0.5 mg IVP Q6 PRN PRN Reason: Pain, moderate (4-7) Morphine Sulfate (Morphine) 1 mg IVP Q6 PRN PRN Reason: Pain, severe (8-10) Last Admin: 02/15/19 18:38 Dose: 1 mg Ondansetron HCl (Zofran Inj) 4 mg IVP Q6 PRN PRN Reason: Nausea/Vomiting Last Admin: 02/15/19 18:38 Dose: 4 mg Raltegravir (Isentress) 400 mg PO BID TITUS; Protocol Last Admin: 02/15/19 17:27 Dose: Not Given - Labs Labs: 02/15/19 04:55 02/15/19 04:55 PT 19.3 Seconds (9.8-13.1) H 02/14/19 15:50 INR 1.7 02/14/19 15:50 APTT 29.8 Seconds (25.6-37.1) 02/14/19 15:50 - Constitutional Appears: Non-toxic, No Acute Distress, Chronically Ill - Head Exam Head Exam: ATRAUMATIC, NORMAL INSPECTION, NORMOCEPHALIC - Eye Exam Eye Exam: EOMI, Normal appearance, PERRL Pupil Exam: NORMAL ACCOMODATION, PERRL - ENT Exam ENT Exam: Mucous Membranes Moist, Normal Exam - Neck Exam Neck Exam: Full ROM, Normal Inspection. absent: Lymphadenopathy - Respiratory Exam Respiratory Exam: Clear to Ausculation Bilateral, NORMAL BREATHING PATTERN - Cardiovascular Exam Cardiovascular Exam: REGULAR RHYTHM, +S1, +S2. absent: Murmur - GI/Abdominal Exam GI & Abdominal Exam: Distended, Guarding, Soft, Tenderness, Organomegaly - Rectal Exam Rectal Exam: Deferred - Extremities Exam Extremities Exam: Full ROM, Normal Capillary Refill, Normal Inspection. absent: Joint Swelling, Pedal Edema - Back Exam Back Exam: NORMAL INSPECTION - Neurological Exam Neurological Exam: Alert, Awake, CN II-XII Intact, Normal Gait, Oriented x3 - Psychiatric Exam Psychiatric exam: Normal Affect, Normal Mood - Skin Skin Exam: Dry, Intact, Normal Color, Warm Assessment and Plan (1) AIDS (acquired immunodeficiency syndrome), CD4 <=200 Status: Acute (2) Gastrointestinal hemorrhage Status: Acute (3) Hepatitis C Status: Chronic (4) Abdominal pain Status: Acute (5) GIB (gastrointestinal bleeding) Status: Acute - Assessment and Plan (Free Text) Assessment: cont rx as ordered add mepron cont HAART gi and surgery on board prognosis guarded
[2019-02-15] MEDS ORDERED: Iodixanol 320 MG/ML 100 ML BOTTLE IV ONE (22:31)
[2019-02-15] MEDS ORDERED: Sodium Chloride 0.9% 50 ML IV ONE (22:31)
[2019-02-15] MEDS: Potassium Ch 20mEq in D5-1/2NS 1,000 ML IV SCH ×2 (23:28→23:30)
[2019-02-16 05:53] LABS: HEMOGLOBIN 9.8 g/dL (12.0-16.0); MEAN CELL VOLUME 90.4 fl (81.0-99.0); MEAN CORPUSCULAR HEMOGLOBIN 30.3 pg (27.0-31.0); MEAN CORPUSCULAR HGB CONC 33.5 g/dL (33.0-37.0); RBC 3.23 Mil/uL (3.80-5.20)
[2019-02-16 06:07] LABS: ALB/GLOB RATIO 0.7 (1.0-2.1); ALBUMIN 3.3 g/dL (3.5-5.0); ALT/SGPT 22 U/L (9-52); AST/SGOT 34 U/L (14-36); BLOOD UREA NITROGEN 16 mg/dl (7-17); CALCIUM 8.7 mg/dL (8.4-10.2); GFR NON-AFRICAN AMERICAN 57
[2019-02-16 06:08] LABS: WHITE BLOOD COUNT 1.8 K/uL (4.8-10.8)
[2019-02-16] MEDS: Potassium Ch 20mEq in D5-1/2NS 1,000 ML IV SCH (06:26)
[2019-02-16 06:36] LABS: FERRITIN 19.2 ng/Ml (11.1-264.0)
--- NOTE | 2019-02-16 07:48 | CP.PCM.PN ---
<Molly Callesh - Last Filed: 02/16/19 07:48> Subjective - Date & Time of Evaluation Date of Evaluation: 02/16/19 Time of Evaluation: 07:45 - Subjective Subjective: Surgery Progress Note for Dr. Mclaughlin 58F seen and evaluated at bedside this morning. No acute events overnight. No complaints this morning. No repeat upper GI bleeding episodes. Patient NPO for possible endoscopy today. Denies f/c, n/v/d, SOB, CP, or urinary symptoms. Objective - Vital Signs/Intake and Output Vital Signs (last 24 hours): Temp Pulse Resp BP Pulse Ox 98.4 F 51 L 20 97/60 L 98 02/16/19 05:15 02/16/19 05:15 02/16/19 05:15 02/16/19 05:15 02/16/19 05:15 - Medications Medications: Current Medications Abacavir Sulfate (Ziagen) 600 mg PO DAILY TITUS; Protocol Last Admin: 02/15/19 09:33 Dose: 600 mg Atovaquone (Mepron) 1,500 mg PO DAILY TITUS; Protocol Pantoprazole Sodium 40 mg/ (Sodium Chloride) 100 mls @ 20 mls/hr IVPB Q5H TITUS Last Admin: 02/15/19 06:23 Dose: Not Given Potassium Chloride/Dextrose/Sod Cl (Potassium Chl 20 Meq In D5-1/2ns) 1,000 mls @ 100 mls/hr IV .Q10H TITUS Stop: 02/16/19 07:50 Last Admin: 02/16/19 06:26 Dose: Not Given Ceftriaxone Sodium 1 gm/ (Sodium Chloride) 100 mls @ 100 mls/hr IVPB DAILY TITUS; Protocol Last Admin: 02/15/19 11:07 Dose: 100 mls/hr Lamivudine (Epivir) 300 mg PO DAILY TITUS; Protocol Last Admin: 02/15/19 09:33 Dose: 300 mg Morphine Sulfate (Morphine) 0.5 mg IVP Q6 PRN PRN Reason: Pain, moderate (4-7) Morphine Sulfate (Morphine) 1 mg IVP Q6 PRN PRN Reason: Pain, severe (8-10) Last Admin: 02/16/19 06:29 Dose: 1 mg Ondansetron HCl (Zofran Inj) 4 mg IVP Q6 PRN PRN Reason: Nausea/Vomiting Last Admin: 02/15/19 18:38 Dose: 4 mg Raltegravir (Isentress) 400 mg PO BID TITUS; Protocol Last Admin: 02/15/19 17:27 Dose: Not Given - Labs Labs: 02/16/19 05:05 02/16/19 05:05 PT 19.3 Seconds (9.8-13.1) H 02/14/19 15:50 INR 1.7 02/14/19 15:50 APTT 29.8 Seconds (25.6-37.1) 02/14/19 15:50 - Constitutional Appears: Well, Non-toxic, No Acute Distress - Head Exam Head Exam: ATRAUMATIC, NORMAL INSPECTION, NORMOCEPHALIC - Eye Exam Eye Exam: EOMI - ENT Exam ENT Exam: Mucous Membranes Moist - Respiratory Exam Respiratory Exam: NORMAL BREATHING PATTERN. absent: Wheezes, Respiratory Distress - GI/Abdominal Exam GI & Abdominal Exam: Soft, Tenderness (epigastric), Normal Bowel Sounds - Neurological Exam Neurological Exam: Alert, Awake, Oriented x3 - Psychiatric Exam Psychiatric exam: Normal Affect, Normal Mood - Skin Skin Exam: Dry, Intact, Normal Color, Warm Assessment and Plan - Assessment and Plan (Free Text) Assessment: 58F w/ liver lesions and upper GI bleeding Plan: Pending CT liver read NPO - pending GI intervention today F/u further GI recommendations Further recommendations pending attending evaluation Howard Calles PGY1 <Brock Koroma - Last Filed: 02/16/19 11:54> Objective - Vital Signs/Intake and Output Vital Signs (last 24 hours): Temp Pulse Resp BP Pulse Ox 96.8 F L 59 L 14 108/57 L 100 02/16/19 10:00 02/16/19 10:00 02/16/19 10:00 02/16/19 10:00 02/16/19 10:00 Intake and Output: 02/16/19 02/16/19 06:59 18:59 Intake Total 150 Balance 150 - Medications Medications: Current Medications Abacavir Sulfate (Ziagen) 600 mg PO DAILY TITUS; Protocol Last Admin: 02/15/19 09:33 Dose: 600 mg Atovaquone (Mepron) 1,500 mg PO DAILY TITUS; Protocol Pantoprazole Sodium 40 mg/ (Sodium Chloride) 100 mls @ 20 mls/hr IVPB Q5H TITUS Last Admin: 02/15/19 06:23 Dose: Not Given Ceftriaxone Sodium 1 gm/ (Sodium Chloride) 100 mls @ 100 mls/hr IVPB DAILY [facility]; Protocol Last Admin: 02/15/19 11:07 Dose: 100 mls/hr Lamivudine (Epivir) 300 mg PO DAILY TITUS; Protocol Last Admin: 02/15/19 09:33 Dose: 300 mg Morphine Sulfate (Morphine) 0.5 mg IVP Q6 PRN PRN Reason: Pain, moderate (4-7) Morphine Sulfate (Morphine) 1 mg IVP Q6 PRN PRN Reason: Pain, severe (8-10) Last Admin: 02/16/19 06:29 Dose: 1 mg Ondansetron HCl (Zofran Inj) 4 mg IVP Q6 PRN PRN Reason: Nausea/Vomiting Last Admin: 02/15/19 18:38 Dose: 4 mg Raltegravir (Isentress) 400 mg PO BID TITUS; Protocol Last Admin: 02/15/19 17:27 Dose: Not Given - Labs Labs: 02/16/19 05:05 02/16/19 05:05 PT 19.3 Seconds (9.8-13.1) H 02/14/19 15:50 INR 1.7 02/14/19 15:50 APTT 29.8 Seconds (25.6-37.1) 02/14/19 15:50 Assessment and Plan - Assessment and Plan (Free Text) Plan: All medical record entries made by the resident were at my direction. I have rev iewed the chart and agree that the record accurately reflects my personal performance of the history, physical exam, medical decision making CT reviewed, poor quality exam. Arterial phase too early, thus less likely to enhance, no delayed phase, less likely to see wash out
[2019-02-16] MEDS ORDERED: Lactated Ringer's 500 ML IV ONE (07:57)
[2019-02-16] MEDS ORDERED: Atovaquone 750 mg/5 ml Susp UD PO SCH (09:00)
--- NOTE | 2019-02-16 11:23 | CP.PCM.CON ---
Past Patient History - Infectious Disease Hx of Infectious Diseases: None - Past Medical History & Family History Past Medical History?: Yes - Past Social History Smoking Status: Former Smoker - CARDIAC Hx Hypertension: Yes Hx Pacemaker: No - PULMONARY Hx Respiratory Disorders: No - NEUROLOGICAL Hx Neurological Disorder: Yes Other/Comment: severe pain fromneuropathy ble - HEENT Hx HEENT Problems: Yes Hx Blind: No Other/Comment: Use eyeglasses for reading - RENAL Hx Chronic Kidney Disease: No - ENDOCRINE/METABOLIC Hx Endocrine Disorders: No - HEMATOLOGICAL/ONCOLOGICAL Hx Anemia: Yes (blood transfusion) Hx Human Immunodeficiency Virus (HIV): Yes - INTEGUMENTARY Hx Dermatological Problems: Yes (chronic ulcers) Other/Comment: left inner ankle sx scar, multiple ble skin discolorations, crooked left great toe, vanda scar from fall - MUSCULOSKELETAL/RHEUMATOLOGICAL Hx Arthritis: Yes (lower back) - GASTROINTESTINAL Hx Gastrointestinal Disorders: No Other/Comment: + c dif 05/07/17 - GENITOURINARY/GYNECOLOGICAL Hx Genitourinary Disorders: No - PSYCHIATRIC Hx Emotional Abuse: No Hx Physical Abuse: No Hx Substance Use: No - SURGICAL HISTORY Hx Mastectomy: No - ANESTHESIA Hx Anesthesia Reactions: No Hx Malignant Hyperthermia: No Meds Allergies/Adverse Reactions: Allergies Allergy/AdvReac Type Severity Reaction Status Date / Time doxycycline Allergy RASH Verified 02/14/19 14:21 sulfamethoxazole Allergy RASH Verified 02/14/19 14:21 [From Bactrim] tramadol HCl [From Ultram] Allergy RASH Verified 02/14/19 14:21 trimethoprim [From Bactrim] Allergy RASH Verified 02/14/19 14:21 - Medications Medications: Current Medications Abacavir Sulfate (Ziagen) 600 mg PO DAILY TITUS; Protocol Last Admin: 02/15/19 09:33 Dose: 600 mg Atovaquone (Mepron) 1,500 mg PO DAILY TITUS; Protocol Pantoprazole Sodium 40 mg/ (Sodium Chloride) 100 mls @ 20 mls/hr IVPB Q5H TITUS Last Admin: 02/15/19 06:23 Dose: Not Given Ceftriaxone Sodium 1 gm/ (Sodium Chloride) 100 mls @ 100 mls/hr IVPB DAILY TITUS; Protocol Last Admin: 02/15/19 11:07 Dose: 100 mls/hr Lamivudine (Epivir) 300 mg PO DAILY TITUS; Protocol Last Admin: 02/15/19 09:33 Dose: 300 mg Morphine Sulfate (Morphine) 0.5 mg IVP Q6 PRN PRN Reason: Pain, moderate (4-7) Morphine Sulfate (Morphine) 1 mg IVP Q6 PRN PRN Reason: Pain, severe (8-10) Last Admin: 02/16/19 06:29 Dose: 1 mg Ondansetron HCl (Zofran Inj) 4 mg IVP Q6 PRN PRN Reason: Nausea/Vomiting Last Admin: 02/15/19 18:38 Dose: 4 mg Raltegravir (Isentress) 400 mg PO BID [facility]; Protocol Last Admin: 02/15/19 17:27 Dose: Not Given Results - Vital Signs Recent Vital Signs: Last Vital Signs Temp 96.8 F L 02/16/19 10:00 Pulse 59 L 02/16/19 10:00 Resp 14 02/16/19 10:00 BP 108/57 L 02/16/19 10:00 Pulse Ox 100 02/16/19 10:00 - Labs Result Diagrams: 02/16/19 05:05 02/16/19 05:05 Labs: Laboratory Results - last 24 hr 02/16/19 02/16/19 02/16/19 05:05 05:05 05:05 WBC 1.8 L* RBC 3.23 L Hgb 9.8 L Hct 29.2 L MCV 90.4 MCH 30.3 MCHC 33.5 RDW 16.0 H Plt Count 44 L Retic Count Sodium 135 Potassium 3.8 Chloride 106 Carbon Dioxide 24 Anion Gap 9 L BUN 16 Creatinine 1.0 Est GFR ( Amer) > 60 Est GFR (Non-Af Amer) 57 Random Glucose 98 Calcium 8.7 Ferritin 19.2 Total Bilirubin 0.8 AST 34 ALT 22 Alkaline Phosphatase 43 Total Protein 7.7 Albumin 3.3 L Globulin 4.4 H Albumin/Globulin Ratio 0.7 L Alpha Fetoprotein 2.3 Vitamin B12 752 02/16/19 05:05 WBC RBC Hgb Hct MCV MCH MCHC RDW Plt Count Retic Count 1.3 Sodium Potassium Chloride Carbon Dioxide Anion Gap BUN Creatinine Est GFR ( Amer) Est GFR (Non-Af Amer) Random Glucose Calcium Ferritin Total Bilirubin AST ALT Alkaline Phosphatase Total Protein Albumin Globulin Albumin/Globulin Ratio Alpha Fetoprotein Vitamin B12
[2019-02-16] MEDS: Pantoprazole 40 MG in Sodium Chloride 0.9% 100 ML IVPB SCH (12:09)
[2019-02-16 12:30] LABS: FOLATE 10.6 ng/mL
[2019-02-16 12:34] VITALS: TEMP 98.5
--- NOTE | 2019-02-16 15:33 | CP.PCM.DIS ---
<Ninfa Baker - Last Filed: 02/16/19 15:59> Provider - Provider Date of Admission: 02/14/19 16:20 Attending physician: Marj Jc DO Consults: 02/14/19 16:23 Gastroenterology Consult Stat Comment: Consulting Provider: Raj Sims Consulting Physician: Raj Sims Reason for Consult: UGIB, h/o Hep C, cirrhosis, varices 02/14/19 16:43 Infectious Disease Consult Routine Comment: Consulting Provider: Nii Ta Consulting Physician: Nii Ta Reason for Consult: chronic HIV, Hep C 02/15/19 21:59 Hematology Oncology Consult Routine Comment: Consulting Provider: Suman Colón Consulting Physician: Suman Colón Reason for Consult: thrombocytopenia r/o HCC Time Spent in preparation of Discharge (in minutes): 20 Diagnosis - Discharge Diagnosis (1) Gastritis Status: Acute (2) AIDS (acquired immunodeficiency syndrome), CD4 <=200 Status: Chronic (3) Abdominal pain Status: Chronic (4) Gastrointestinal hemorrhage Status: Resolved Hospital Course - Lab Results Lab Results: Most Recent Lab Values WBC 1.8 K/uL (4.8-10.8) L* 02/16/19 05:05 RBC 3.23 Mil/uL (3.80-5.20) L 02/16/19 05:05 Hgb 9.8 g/dL (12.0-16.0) L 02/16/19 05:05 Hct 29.2 % (34.0-47.0) L 02/16/19 05:05 MCV 90.4 fl (81.0-99.0) 02/16/19 05:05 MCH 30.3 pg (27.0-31.0) 02/16/19 05:05 MCHC 33.5 g/dL (33.0-37.0) 02/16/19 05:05 RDW 16.0 % (11.5-14.5) H 02/16/19 05:05 Plt Count 44 K/uL (130-400) L 02/16/19 05:05 MPV 9.2 fl (7.2-11.7) 02/14/19 15:10 Neut % (Auto) 74.0 % (50.0-75.0) 02/14/19 15:10 Lymph % (Auto) 19.5 % (20.0-40.0) L 02/14/19 15:10 [place] % (Auto) 5.8 % (0.0-10.0) 02/14/19 15:10 Eos % (Auto) 0.2 % (0.0-4.0) 02/14/19 15:10 Baso % (Auto) 0.5 % (0.0-2.0) 02/14/19 15:10 Neut # (Auto) 3.2 K/uL (1.8-7.0) 02/14/19 15:10 Lymph # (Auto) 0.8 K/uL (1.0-4.3) L 02/14/19 15:10 [place] # (Auto) 0.3 K/uL (0.0-0.8) 02/14/19 15:10 Eos # (Auto) 0.0 K/uL (0.0-0.7) 02/14/19 15:10 Baso # (Auto) 0.0 K/uL (0.0-0.2) 02/14/19 15:10 Retic Count 1.3 % (0.5-1.5) 02/16/19 05:05 PT 19.3 Seconds (9.8-13.1) H 02/14/19 15:50 INR 1.7 02/14/19 15:50 APTT 29.8 Seconds (25.6-37.1) 02/14/19 15:50 Sodium 135 mmol/l (132-148) 02/16/19 05:05 Potassium 3.8 MMOL/L (3.6-5.0) 02/16/19 05:05 Chloride 106 mmol/L (98-107) 02/16/19 05:05 Carbon Dioxide 24 mmol/L (22-30) 02/16/19 05:05 Anion Gap 9 (10-20) L 02/16/19 05:05 BUN 16 mg/dl (7-17) 02/16/19 05:05 Creatinine 1.0 mg/dl (0.7-1.2) 02/16/19 05:05 Est GFR ( Amer) > 60 02/16/19 05:05 Est GFR (Non-Af Amer) 57 02/16/19 05:05 Random Glucose 98 mg/dL (65-105) 02/16/19 05:05 Lactic Acid 1.7 mmol/L (0.7-2.1) 02/14/19 15:50 Calcium 8.7 mg/dL (8.4-10.2) 02/16/19 05:05 Ferritin 19.2 ng/Ml (11.1-264.0) 02/16/19 05:05 Total Bilirubin 0.8 mg/dl (0.2-1.3) 02/16/19 05:05 AST 34 U/L (14-36) 02/16/19 05:05 ALT 22 U/L (9-52) 02/16/19 05:05 Alkaline Phosphatase 43 U/L (38-126) 02/16/19 05:05 Total Protein 7.7 G/DL (6.3-8.2) 02/16/19 05:05 Albumin 3.3 g/dL (3.5-5.0) L 02/16/19 05:05 Globulin 4.4 gm/dL (2.2-3.9) H 02/16/19 05:05 Albumin/Globulin Ratio 0.7 (1.0-2.1) L 02/16/19 05:05 Lipase 92 U/L (23-300) 02/14/19 15:50 Alpha Fetoprotein 2.3 IU/mL (0.0-7.22) 02/16/19 05:05 CA 19-9 Antigen < 1.4 U/mL (0-37) 02/16/19 05:05 Vitamin B12 752 pg/mL (239-931) 02/16/19 05:05 Folate 10.6 ng/mL 02/16/19 05:05 Urine Color Straw (YELLOW) 02/14/19 15:10 Urine Clarity Clear (Clear) 02/14/19 15:10 Urine pH 8.0 (5.0-8.0) 02/14/19 15:10 Ur Specific [place] 1.005 (1.003-1.030) 02/14/19 15:10 Urine Protein 100 mg/dL (NEGATIVE) 02/14/19 15:10 Urine Glucose (UA) Neg mg/dL (NEGATIVE) 02/14/19 15:10 Urine Ketones Trace mg/dL (NEGATIVE) 02/14/19 15:10 Urine Blood Small (NEGATIVE) 02/14/19 15:10 Urine Nitrate Negative (NEGATIVE) 02/14/19 15:10 Urine Bilirubin Negative (NEGATIVE) 02/14/19 15:10 Urine Urobilinogen 0.2-1.0 mg/dL (0.2-1.0) 02/14/19 15:10 Ur Leukocyte Esterase Neg Yeison/uL (Negative) 02/14/19 15:10 Urine RBC (Auto) 4 /hpf (0-3) H 02/14/19 15:10 Urine Microscopic WBC 1 /hpf (0-5) 02/14/19 15:10 Ur Squamous Epith Cells 2 /hpf (0-5) 02/14/19 15:10 Urine Bacteria Rare (<OCC) 02/14/19 15:10 Blood Type A POSITIVE 02/14/19 15:50 Antibody Screen Negative 02/14/19 15:50 BBK History Checked Patient has bt 02/14/19 15:50 - Hospital Course Hospital Course: 58-year-old female with PMH of HIV, Hep C and cirrhosis, bleeding varices and DVT presents to [facility] ED after 8 episodes of hematemesis, admitted for upper GI bleed. GI was consulted, Endoscopy revealed gastritis, no active bleeding. Heme/Onc was consulted for pancytopenia - cleared for dc to home with outpatient follow up. Pt had no episodes of bleeding while in hospital, remained vitally stable. PPI RX given on discharge, follow up with PMD, Dr Ta within 1 week, Dr Colón within [address] Sims within 2 weeks for repeat endoscopy. ED precautions given. Discharge Exam - Head Exam Head Exam: ATRAUMATIC, NORMAL INSPECTION, NORMOCEPHALIC - Eye Exam Eye Exam: Normal appearance - ENT Exam ENT Exam: Mucous Membranes Moist - Respiratory Exam Respiratory Exam: NORMAL BREATHING PATTERN, UNREMARKABLE. absent: Respiratory Distress - Cardiovascular Exam Cardiovascular Exam: REGULAR RHYTHM - GI/Abdominal Exam GI & Abdominal Exam: Tenderness (epigastric) - Extremities Exam Extremities exam: normal inspection - Neurological Exam Neurological exam: Alert, Normal Gait, Oriented x3 - Psychiatric Exam Psychiatric exam: Normal Affect, Normal Mood - Skin Skin Exam: Normal Color, Warm Discharge Plan - Discharge Medications Prescriptions: Pantoprazole Sodium [Protonix] 20 mg PO BID #14 ect - Follow Up Plan Condition: GUARDED Disposition: HOME/ ROUTINE Instructions: Gastritis (DC), Gastrointestinal Bleeding (DC) Additional Instructions: follow up with pmd, Dr Ta in 1 week, [address] Colón in [address] Sims in 2 weeks. Referrals: Suman Colón MD [Staff Provider] - Raj Sims MD, PhD [Staff Provider] - Nii Ta MD [Staff Provider] - <Marj Jc - Last Filed: 02/17/19 19:18> Provider - Provider Date of Admission: 02/14/19 16:20 Attending physician: Marj Jc DO Consults: 02/14/19 16:23 Gastroenterology Consult Stat Comment: Consulting Provider: Raj Sims Consulting Physician: Raj Sims Reason for Consult: UGIB, h/o Hep C, cirrhosis, varices 02/14/19 16:43 Infectious Disease Consult Routine Comment: Consulting Provider: Nii Ta Consulting Physician: Nii Ta Reason for Consult: chronic HIV, Hep C 02/15/19 21:59 Hematology Oncology Consult Routine Comment: Consulting Provider: Suman Colón Consulting Physician: Suman Colón Reason for Consult: thrombocytopenia r/o [facility] Hospital Course - Lab Results Lab Results: Most Recent Lab Values WBC 1.8 K/uL (4.8-10.8) L* 02/16/19 05:05 RBC 3.23 Mil/uL (3.80-5.20) L 02/16/19 05:05 Hgb 9.8 g/dL (12.0-16.0) L 02/16/19 05:05 Hct 29.2 % (34.0-47.0) L 02/16/19 05:05 MCV 90.4 fl (81.0-99.0) 02/16/19 05:05 MCH 30.3 pg (27.0-31.0) 02/16/19 05:05 MCHC 33.5 g/dL (33.0-37.0) 02/16/19 05:05 RDW 16.0 % (11.5-14.5) H 02/16/19 05:05 Plt Count 44 K/uL (130-400) L 02/16/19 05:05 MPV 9.2 fl (7.2-11.7) 02/14/19 15:10 Neut % (Auto) 74.0 % (50.0-75.0) 02/14/19 15:10 Lymph % (Auto) 19.5 % (20.0-40.0) L 02/14/19 15:10 [place] % (Auto) 5.8 % (0.0-10.0) 02/14/19 15:10 Eos % (Auto) 0.2 % (0.0-4.0) 02/14/19 15:10 Baso % (Auto) 0.5 % (0.0-2.0) 02/14/19 15:10 Neut # (Auto) 3.2 K/uL (1.8-7.0) 02/14/19 15:10 Lymph # (Auto) 0.8 K/uL (1.0-4.3) L 02/14/19 15:10 [place] # (Auto) 0.3 K/uL (0.0-0.8) 02/14/19 15:10 Eos # (Auto) 0.0 K/uL (0.0-0.7) 02/14/19 15:10 Baso # (Auto) 0.0 K/uL (0.0-0.2) 02/14/19 15:10 Retic Count 1.3 % (0.5-1.5) 02/16/19 05:05 PT 19.3 Seconds (9.8-13.1) H 02/14/19 15:50 INR 1.7 02/14/19 15:50 APTT 29.8 Seconds (25.6-37.1) 02/14/19 15:50 Sodium 135 mmol/l (132-148) 02/16/19 05:05 Potassium 3.8 MMOL/L (3.6-5.0) 02/16/19 05:05 Chloride 106 mmol/L (98-107) 02/16/19 05:05 Carbon Dioxide 24 mmol/L (22-30) 02/16/19 05:05 Anion Gap 9 (10-20) L 02/16/19 05:05 BUN 16 mg/dl (7-17) 02/16/19 05:05 Creatinine 1.0 mg/dl (0.7-1.2) 02/16/19 05:05 Est GFR ( Amer) > 60 02/16/19 05:05 Est GFR (Non-Af Amer) 57 02/16/19 05:05 Random Glucose 98 mg/dL (65-105) 02/16/19 05:05 Lactic Acid 1.7 mmol/L (0.7-2.1) 02/14/19 15:50 Calcium 8.7 mg/dL (8.4-10.2) 02/16/19 05:05 Ferritin 19.2 ng/Ml (11.1-264.0) 02/16/19 05:05 Total Bilirubin 0.8 mg/dl (0.2-1.3) 02/16/19 05:05 AST 34 U/L (14-36) 02/16/19 05:05 ALT 22 U/L (9-52) 02/16/19 05:05 Alkaline Phosphatase 43 U/L (38-126) 02/16/19 05:05 Total Protein 7.7 G/DL (6.3-8.2) 02/16/19 05:05 Albumin 3.3 g/dL (3.5-5.0) L 02/16/19 05:05 Globulin 4.4 gm/dL (2.2-3.9) H 02/16/19 05:05 Albumin/Globulin Ratio 0.7 (1.0-2.1) L 02/16/19 05:05 Lipase 92 U/L (23-300) 02/14/19 15:50 Alpha Fetoprotein 2.3 IU/mL (0.0-7.22) 02/16/19 05:05 CA 19-9 Antigen < 1.4 U/mL (0-37) 02/16/19 05:05 Vitamin B12 752 pg/mL (239-931) 02/16/19 05:05 Folate 10.6 ng/mL 02/16/19 05:05 Urine Color Straw (YELLOW) 02/14/19 15:10 Urine Clarity Clear (Clear) 02/14/19 15:10 Urine pH 8.0 (5.0-8.0) 02/14/19 15:10 Ur Specific [place] 1.005 (1.003-1.030) 02/14/19 15:10 Urine Protein 100 mg/dL (NEGATIVE) 02/14/19 15:10 Urine Glucose (UA) Neg mg/dL (NEGATIVE) 02/14/19 15:10 Urine Ketones Trace mg/dL (NEGATIVE) 02/14/19 15:10 Urine Blood Small (NEGATIVE) 02/14/19 15:10 Urine Nitrate Negative (NEGATIVE) 02/14/19 15:10 Urine Bilirubin Negative (NEGATIVE) 02/14/19 15:10 Urine Urobilinogen 0.2-1.0 mg/dL (0.2-1.0) 02/14/19 15:10 Ur Leukocyte Esterase Neg Yeison/uL (Negative) 02/14/19 15:10 Urine RBC (Auto) 4 /hpf (0-3) H 02/14/19 15:10 Urine Microscopic WBC 1 /hpf (0-5) 02/14/19 15:10 Ur Squamous Epith Cells 2 /hpf (0-5) 02/14/19 15:10 Urine Bacteria Rare (<OCC) 02/14/19 15:10 Blood Type A POSITIVE 02/14/19 15:50 Antibody Screen Negative 02/14/19 15:50 BBK History Checked Patient has bt 02/14/19 15:50 Attending/Attestation - Attestation I have personally seen and examined this patient.: Yes I have fully participated in the care of the patient.: Yes I have reviewed all pertinent clinical information, including history, physical exam and plan: Yes Notes (Text): Agree with findings and plan as above.
[2019-02-16 16:16] VITALS: BP 113/73; PULSE 52; RESP 18; O2SAT 100
--- NOTE | 2019-02-16 20:39 | CON ---
DATE: 02/15/2019 REFERRING PHYSICIAN: Marj Jc DO REASON FOR CONSULTATION: Melena. HISTORY OF PRESENT ILLNESS: This is a 58-year-old female with a history of HIV treated, hep C cirrhosis, comes in for hematemesis and some melena, all of which have resolved since being here. She has no fever, chills, nausea, vomiting. Currently lying in bed comfortable, in no apparent distress. PAST MEDICAL HISTORY: As above. PAST SURGICAL HISTORY: As above. MEDICATIONS: Have been reviewed. REVIEW OF SYSTEMS: All other systems have been reviewed and negative apart from the HPI. PHYSICAL EXAMINATION: VITAL SIGNS: Here in the hospital are grossly unremarkable. GENERAL: A pleasant elderly-appearing female, lying in bed comfortably, in no apparent distress. HEENT: Head; normocephalic and atraumatic. Eyes; pupils are equally reactive to light bilaterally. No conjunctival pallor or icterus. NECK: Supple. Normal range of motion. No lymphadenopathy appreciated. LUNGS: Coarse breath sounds bilaterally. HEART: S1 and S2. Regular rhythm. ABDOMEN: Soft, nontender. Bowel sounds present. No rebound, no guarding. RECTAL: Deferred. EXTREMITIES: Pulses felt bilaterally. SKIN: Warm, dry and intact. NEUROLOGIC: Alert and oriented x3. LABORATORY DATA: Labs and radiology have been reviewed. WBC is 3.6, hemoglobin 9.5, hematocrit 33.1, platelets 162. INR 1.7. BUN and creatinine 14 and 1.2. LFTs essentially unremarkable. ASSESSMENT AND PLAN: This is a 58-year-old with what looks like pancytopenia. From a gastrointestinal standpoint, we will get endoscopy for screening purposes. Thank you for the consult. Raj Sims MD/ PhD cc: Marj Jc DO
--- NOTE | 2019-02-17 14:27 | CT ---
Date of service: 02/15/2019 PROCEDURE: CT Abdomen and Pelvis with and without intravenous contrast HISTORY: 4 phase please, thin slices COMPARISON: None. TECHNIQUE: Axial images of the abdomen were obtained in the pre contrast, hepatic arterial and portal venous phases of enhancement. Coronal and sagittal reformats were generated. Please note that the examination was erroneously performed with early arterial and early portal venous phase images and without delayed phase images. Steps were immediately taken to return the patient to Radiology for a repeat scan 24 hr after the original scan, but the patient was transferred to a different hospital in the interim. Contrast dose: 95 mL Visipaque 320 Radiation dose: Total exam DLP = 1048.92 mGy-cm. This CT exam was performed using one or more of the following dose reduction techniques: Automated exposure control, adjustment of the mA and/or kV according to patient size, and/or use of iterative reconstruction technique. FINDINGS: LOWER THORAX: Unremarkable. LIVER: Nodular contour consistent with hepatic cirrhosis. Questionable ill-defined enhancement lateral segment left hepatic lobe on series 7, image 29 through 31. Vaguely identifiable on the 30 sec images, series 4, image 29 through 31. There is no substantial arterial phase enhancement with subsequent washout. Nevertheless, this is of some concern. Unfortunately, delayed phase images were not obtained, as above. There is no discrete mass identified. There is no biliary ductal dilatation. GALLBLADDER AND BILE DUCTS: Unremarkable. PANCREAS: Unremarkable. No gross lesion or ductal dilatation. SPLEEN: Splenomegaly. The spleen measures approximately 16.4 cm in greatest dimension. No focal mass. ADRENALS: Unremarkable. No mass. KIDNEYS AND URETERS: Unremarkable. No hydronephrosis. No solid mass. VASCULATURE: No evidence of abdominal aortic aneurysm. There is mild atherosclerotic calcification of the abdominal aorta. There are perigastric varices. There also likely splenorenal varices seen in the left upper quadrant of the abdomen. There is probable mild paraesophageal varices. Inferior vena caval filter noted. BOWEL: There is circumferential mural thickening of the gastric antrum. There is no bowel obstruction. There is mild retained fecal matter. APPENDIX: Not identified. No secondary findings. PERITONEUM: No ascites or pneumoperitoneum. LYMPH NODES: Unremarkable. No enlarged lymph nodes. BLADDER: Nondistended. Evaluation grossly limited by beam hardening artifact arising from bilateral hip prostheses. REPRODUCTIVE: Hysterectomy. BONES: No acute fracture. OTHER FINDINGS: None. IMPRESSION: Hepatic cirrhosis. Questionable mild ill-defined enhancement in the lateral segment left hepatic lobe, increasingly evident on portal venous versus arterial phase images. Not a characteristic pattern for hepatocellular carcinoma. Further evaluation is advised. See above regarding attempt to reimage patient with delayed phase images. Consider evaluation with gadolinium enhanced magnetic resonance imaging with delayed phase images. Perigastric, spleno renal and paraesophageal varices are noted. Vena caval filter. Bilateral hip prostheses. Hysterectomy.
== END 2019-02-16 16:40 | disposition home or self-care (01) ==
LOC: H.ER 14:15 → INTOOBSV 16:20 → H.ERHOLD 16:20 → H.TEL 22:29
PROVIDERS: ADMIT Student in an Organized Health Care Education/Training Program; ATTEND Student in an Organized Health Care Education/Training Program
DX: I85.01 Esophageal varices with bleeding (principal); K29.00 Acute gastritis without bleeding; E87.6 Hypokalemia; D72.818 Other decreased white blood cell count; B20 Human immunodeficiency virus [HIV] disease; B18.2 Chronic viral hepatitis C; F12.90 Cannabis use, unspecified, uncomplicated; K74.60 Unspecified cirrhosis of liver; I81 Portal vein thrombosis; I10 Essential (primary) hypertension; Z87.891 Personal history of nicotine dependence; Z88.2 Allergy status to sulfonamides
CPT/HCPCS: 36415; 43235; 71045; 74170; 80053; 81003; 82105; 82607; 82728; 82746; 83605; 83690; 85025; 85027; 85044; 85610; 85730; 86301; 86850; 86900; 93005; 96374; 96375; 96376; 99285; C9113; G0378; J0696; J0744; J2270; J2354; J2405; J2765; J3480; J7030; J7040; J7120; Q9967